=== PATIENT | male | born 1990 | race Caucasian/White ===

== ENCOUNTER 2020-06-05 12:30 | Inpatient (IN) | payer OTHER, SELFPAY ==
[~2020-06-05] VITALS: Ht 175.3 cm; Wt 108.9 kg
[2020-06-05 12:42] VITALS: BP 146/72
[2020-06-05] MEDS ORDERED: NACL 0.9% 1,000 ML IV ONE (13:01)
[2020-06-05] MEDS ORDERED: KETOROLAC 30 MG/ML VIAL IVP ONE (13:05)
[2020-06-05] MEDS ORDERED: ONDANSETRON 4 MG/2 ML VIAL IVP ONE (13:05)
[2020-06-05 13:27] LABS: BASOPHILS % (AUTO) 0.3 % (0.0-2.0); EOSINOPHILS # (AUTO) 0.1 K/uL (0-0.4); EOSINOPHILS % (AUTO) 0.9 % (0.0-4.0); HEMOGLOBIN 14.9 g/dL (12.0-18.0); LYMPHOCYTES # (AUTO) 1.7 K/uL (2.0-11.5); LYMPHOCYTES % (AUTO) 14.7 % (20.5-51.1); MEAN CORPUSCULAR HEMOGLOBIN 27 pg (27-31); MEAN CORPUSCULAR HGB CONC 33 g/dL (33-37); MEAN CORPUSCULAR VOLUME 82.4 fL (80-94); MONOCYTES # (AUTO) 0.9 K/uL (0.8-1.0); MONOCYTES % (AUTO) 8.2 % (1.7-9.3); NEUTROPHILS # (AUTO) 8.7 K/uL (1.8-7.7); NEUTROPHILS % (AUTO) 75.9 % (42.2-75.2); PLATELET COUNT (AUTO) 278 K/uL (140-450); RED BLOOD CELL COUNT(AUTO) 5.46 MIL/uL (4.20-6.10); RED CELL DISTRIBUTION WIDTH 13.1 % (11.6-13.7); WHITE BLOOD COUNT (AUTO) 11.4 K/uL (4.8-10.8)
[2020-06-05 13:49] LABS: ANION GAP 14.4 (8-16); CARBON DIOXIDE 25.5 mmol/L (21-32); CREATININE 1.1 mg/dL (0.6-1.3); POTASSIUM 3.9 mmol/L (3.5-5.1); TOTAL BILIRUBIN 0.4 mg/dL (0.0-1.0)
[2020-06-05] MEDS ORDERED: metroNIDAZOLE 500 MG/NS PREMIX 100 ML IV ONE (13:55)
[2020-06-05] MEDS ORDERED: cefTRIAXone 1,000 MG VIAL ONE (14:05)
[2020-06-05] MEDS ORDERED: MORPHINE SULFATE 2 MG/ML SYR IVP PRN (14:35)
[2020-06-05] MEDS ORDERED: ONDANSETRON 4 MG/2 ML VIAL IVP PRN (14:35)
[2020-06-05] MEDS ORDERED: HYDROcodone/APAP 5/325 MG 1 TAB TAB PO PRN (14:35)
[2020-06-05] MEDS ORDERED: ACETAMINOPHEN 325 MG TAB PO PRN (14:35)
[2020-06-05] MEDS: DEXT 5% /NACL 0.9% 1,000 ML IV SCH (16:07)
[2020-06-05 16:30] VITALS: BP 132/75
[2020-06-05] MEDS: PIPERACILLIN/TAZOBACTAM 3.375 GM in DEXTROSE 5% 50 ML IV SCH (18:30)
[2020-06-06] MEDS: DEXT 5% /NACL 0.9% 1,000 ML IV SCH ×2 (02:12→10:51)
[2020-06-06 05:38] LABS: BASOPHILS % (AUTO) 0.4 % (0.0-2.0); EOSINOPHILS # (AUTO) 0.1 K/uL (0-0.4); EOSINOPHILS % (AUTO) 1.5 % (0.0-4.0); HEMATOCRIT 41.5 % (36-52); HEMOGLOBIN 13.6 g/dL (12.0-18.0); LYMPHOCYTES # (AUTO) 2.2 K/uL (2.0-11.5); LYMPHOCYTES % (AUTO) 22.2 % (20.5-51.1); MEAN CORPUSCULAR HEMOGLOBIN 28 pg (27-31); MEAN CORPUSCULAR HGB CONC 33 g/dL (33-37); MEAN CORPUSCULAR VOLUME 84.1 fL (80-94); MONOCYTES % (AUTO) 9.7 % (1.7-9.3); NEUTROPHILS # (AUTO) 6.5 K/uL (1.8-7.7); NEUTROPHILS % (AUTO) 66.2 % (42.2-75.2); PLATELET COUNT (AUTO) 260 K/uL (140-450); RED BLOOD CELL COUNT(AUTO) 4.93 MIL/uL (4.20-6.10); WHITE BLOOD COUNT (AUTO) 9.8 K/uL (4.8-10.8)
[2020-06-06 05:50] LABS: APPEARANCE,URINE CLEAR (CLEAR); BILIRUBIN,URINE NEGATIVE (NEGATIVE); BLOOD, URINE NEGATIVE (NEGATIVE); COLOR,URINE YELLOW (YELLOW); LEUKOCYTE ESTERASE ,URINE NEGATIVE (NEGATIVE); NITRITE, URINE NEGATIVE (NEGATIVE); UGLUCOSE NEGATIVE (NEGATIVE)
[2020-06-06] MEDS: PIPERACILLIN/TAZOBACTAM 3.375 GM in DEXTROSE 5% 50 ML IV SCH ×4 (06:02→11:43)
[2020-06-06 06:15] LABS: ANION GAP 11.5 (8-16); CARBON DIOXIDE 27.5 mmol/L (21-32); CREATININE 1.2 mg/dL (0.6-1.3)
[2020-06-06 07:35] LABS: PROTHROMBIN TIME 10.4 secs (10.8-13.4)
[2020-06-06 08:00] VITALS: BP 136/81
[2020-06-06] MEDS ORDERED: ROCURONIUM 50 MG/5 ML VIAL IV ONE (09:53)
[2020-06-06] MEDS ORDERED: SEVOFLURANE 250 ML BTL INH ONE (09:53)
[2020-06-06] MEDS ORDERED: PROPOFOL 200 MG/20 ML VIAL IV ONE (09:53)
[2020-06-06] MEDS ORDERED: ONDANSETRON 4 MG/2 ML VIAL ONE (09:53)
[2020-06-06] MEDS ORDERED: KETOROLAC 30 MG/ML VIAL ONE (09:53)
[2020-06-06] MEDS ORDERED: MIDAZOLAM 2 MG/2 ML VIAL ONE (09:53)
[2020-06-06] MEDS ORDERED: GLYCOPYRROLATE 0.2 MG/ML VIAL ONE (09:53)
[2020-06-06] MEDS ORDERED: fentaNYL citrate 0.05 MG/ML VIAL ONE (09:53)
[2020-06-06] MEDS ORDERED: NEOSTIGMINE 1:1000 10 MG/10 ML VIAL ONE (09:53)
[2020-06-06] MEDS ORDERED: ceFAZolin 1,000 MG VIAL ONE (09:53)
[2020-06-06] MEDS ORDERED: DEXAMETHASONE 4 MG/ML VIAL ONE (09:53)
[2020-06-06] MEDS: LIDOCAINE 1% 500 MG/50 ML VIAL ONE ×2 (09:55→10:51)
[2020-06-06] MEDS: BUPIVACAINE-MPF/EPI 0.25% 10 ML VIAL INJ ONE ×2 (09:56→10:50)
[2020-06-06] MEDS ORDERED: HYDROmorphone 1 MG/ML AMP IVP PRN ×3 (10:10→10:55)
[2020-06-06] MEDS ORDERED: HYDROcodone/APAP 5/325 MG 1 TAB TAB PO PRN (10:10)
[2020-06-06] MEDS ORDERED: ONDANSETRON 4 MG/2 ML VIAL IVP PRN ×2 (10:55)
[2020-06-06 16:00] VITALS: BP 134/72
[2020-06-06] MEDS ORDERED: HYDR-5122 PO (17:26)
[2020-06-06 17:27] VITALS: BP 134/72
[2020-06-06] MEDS ORDERED: PIPERACILLIN/TAZOBACTAM 3.375 GM in DEXTROSE 5% 50 ML IV SCH (18:00)
== END 2020-06-06 18:28 | disposition home or self-care (01) | DRG 234 ==
LOC: MED 12:30 → MMU 16:04
PROVIDERS: ADMIT Internal Medicine; ATTEND Internal Medicine
PROC: 0DTJ4ZZ Resection of Appendix, Percutaneous Endoscopic Approach (ICD-10-PCS; principal; 2020-06-06 09:30)
DX: K35.80 Unspecified acute appendicitis (principal); Z20.828 Contact with and (suspected) exposure to other viral communicable diseases; E66.3 Overweight; Z68.35 Body mass index [BMI] 35.0-35.9, adult
CPT/HCPCS: 36415; 71045; 80048; 80053; 81003; 85025; 85610; 85730; 87040; 87081; 96361; 96365; 96368; 96375; 99285; J0690; J0696; J1100; J1170; J1885; J2001; J2250; J2405; J2543; J2704; J2710; J3010; J3490; J7042; J7060; Q0092

== ENCOUNTER 2022-05-11 14:02 | Emergency (ER) | payer OTHER ==
[~2022-05-11] VITALS: Ht 185.4 cm; Wt 117.0 kg
[~2022-05-11 14:02] MED LIST: HYDR-5122 PO
[2022-05-11 14:17] VITALS: BP 106/61
--- NOTE | 2022-05-11 15:14 | NUR ---
PT AMBULATED TO BED 8
--- NOTE | 2022-05-11 15:17 | NUR ---
31 yo m bibs w c/o of sharp left flank pain that rad to back and sharp left testicle pain non rad. Denies n/v/d, pain during urination; skin is pink/warm/dry; aaox4 with even and steady gait. pt denies any fever, cp, sob, or cough at this time; patient states pain of 8/10 at this time; vss; patient positioned for comfort; hob elevated; bedrails up x2; bed down. pmh: appendix removal 1 year ago meds: denies
[2022-05-11] MEDS ORDERED: KETOROLAC 30 MG/ML VIAL ONE (15:30)
[2022-05-11] MEDS ORDERED: KETOROLAC 60 MG/2 ML VIAL IM ONE ×2 (15:30→15:31)
[2022-05-11] MEDS ORDERED: IBUP-2213 PO (15:48)
[2022-05-11] MEDS ORDERED: OMEP40EC24 PO (15:48)
[2022-05-11 16:19] VITALS: BP 106/61
--- NOTE | 2022-05-11 16:19 | NUR ---
Patient discharged with v/s stable. Written and verbal after care instructions given and explained. Patient alert, oriented and verbalized understanding of instructions. Ambulatory with steady gait. All questions addressed prior to discharge. ID band removed. Patient advised to follow up with PMD. Rx of ibuprofen & prilosec given. Patient educated on indication of medication including possible reaction and side effects. Opportunity to ask questions provided and answered.
== END 2022-05-11 16:19 | disposition home or self-care (01) ==
LOC: MED 14:02
DX: R10.12 Left upper quadrant pain (principal); R10.32 Left lower quadrant pain; Z90.49 Acquired absence of other specified parts of digestive tract; Z72.89 Other problems related to lifestyle
CPT/HCPCS: 81002; 96372; 99283; J1885

== ENCOUNTER 2024-02-03 10:20 | Emergency (ER) | payer OTHER ==
[~2024-02-03] VITALS: Ht 185.4 cm; Wt 105.2 kg
[~2024-02-03 10:20] MED LIST changes: +IBUP-2213 PO; +OMEP40EC24 PO
[2024-02-03 10:42] VITALS: BP 149/85; PULSE 70; RESP 20; TEMP 97.4; O2SAT 97
[2024-02-03 11:44] LABS: APPEARANCE,URINE CLEAR (CLEAR); BILIRUBIN,URINE NEGATIVE (NEGATIVE); BLOOD, URINE NEGATIVE (NEGATIVE); COLOR,URINE YELLOW (YELLOW); LEUKOCYTE ESTERASE ,URINE NEGATIVE (NEGATIVE); NITRITE, URINE NEGATIVE (NEGATIVE); PROTEIN,URINE NEGATIVE (NEGATIVE); UGLUCOSE NEGATIVE (NEGATIVE); UROBILINOGEN,URINE 0.2 EU/dL (0.2 - 1)
[2024-02-03 11:59] LABS: FLU B ANTIGEN negative (NEGATIVE)
[2024-02-03 12:05] LABS: FLU A ANTIGEN POSITIVE (NEGATIVE)
[2024-02-03] MEDS ORDERED: ALBU0.0912 IH (12:21)
[2024-02-03] MEDS ORDERED: OXYM20SP1 NS (12:21)
[2024-02-03] MEDS ORDERED: BENZ200C4 PO (12:21)
[2024-02-03] MEDS ORDERED: MUC600 PO (12:21)
[2024-02-03 12:35] VITALS: BP 134/101; PULSE 84; RESP 19; TEMP 97.4; O2SAT 96
== END 2024-02-03 12:30 | disposition home or self-care (01) ==
LOC: MED 10:20
DX: J10.1 Influenza due to other identified influenza virus with other respiratory manifestations (principal); J32.8 Other chronic sinusitis; B97.89 Other viral agents as the cause of diseases classified elsewhere; R03.0 Elevated blood-pressure reading, without diagnosis of hypertension; Z20.822 Contact with and (suspected) exposure to COVID-19; Z79.1 Long term (current) use of non-steroidal anti-inflammatories (NSAID); Z79.899 Other long term (current) drug therapy
CPT/HCPCS: 71045; 81003; 99284